=== PATIENT | male | born 1970 | race Caucasian/White ===

== ENCOUNTER 2017-07-15 02:39 | Emergency (ER) | payer OTHER ==
[~2017-07-15] VITALS: Ht 185.4 cm; Wt 90.0 kg
[~2017-07-15 02:39] MED LIST: ALBU8I INH; AMOX875T20 PO; CITA-48 PO; HYDR1CAP30 PO; KETO2SHA5 TOP; LORT5TAB PO; PROT40TA PO; SILD20TA PO; TRAZ50TA4 PO
[2017-07-15 02:41] VITALS: BP 208/97; PULSE 80; RESP 16; TEMP 98; O2SAT 97
[2017-07-15] MEDS ORDERED: HYDR12.57 PO (03:03)
[2017-07-15] MEDS ORDERED: LISI40TA PO (03:03)
[2017-07-15] MEDS ORDERED: SODIUM CHLOR 0.9% 1000 ML INJ 1,000 ML IV SCH (03:14)
[2017-07-15] MEDS ORDERED: KETOROLAC TROMETHAMINE 30 MG/ML (IVP) VIAL IVP ONE (03:15)
[2017-07-15] MEDS ORDERED: ONDANSETRON HCL 4 MG/2 ML VIAL IVP ONE (03:15)
[2017-07-15] MEDS ORDERED: SODIUM CHLORIDE 0.9% FLUSH 10 ML FLUSH IV FLUSH PRN (03:15)
[2017-07-15] MEDS ORDERED: MORPHINE SULFATE 4 MG/ML INJ IV PUSH ONE (03:15)
[2017-07-15 03:56] LABS: AUTOMATED NEUTROPHIL # 9.9 TH/MM3 (1.8-7.7); BASOPHIL # 0.1 TH/MM3 (0-0.2); BASOPHIL % 0.9 % (0.0-2.0); EOSINOPHIL # 0.3 TH/MM3 (0-0.4); HEMATOCRIT 46.2 % (39.0-51.0); HEMO FLAGS DIFF FINAL; LYMPH % 20.4 % (9.0-44.0); LYMPHOCYTE # 2.9 TH/MM3 (1.0-4.8); MEAN CELL VOLUME 90.7 FL (80.0-100.0); MEAN CORPUSCULAR HEMOGLOBIN 30.9 PG (27.0-34.0); MEAN CORPUSCULAR HGB CONC 34.1 % (32.0-36.0); MONO % 7.9 % (0.0-8.0); NEUT % 68.8 % (16.0-70.0); PLATELET COUNT 251 TH/MM3 (150-450); RED CELL DISTRIBUTION WIDTH 14.7 % (11.6-17.2); WHITE BLOOD COUNT 14.3 TH/MM3 (4.0-11.0)
--- NOTE | 2017-07-15 04:00 | RADRPT ---
EXAM DATE/TIME: 07/15/2017 03:24 [place] COMPARISON: CT ABDOMEN & PELVIS W CONTRAST, August 22, 2013, 17:05. INDICATIONS : Left flank pain with painful urination. ORAL CONTRAST: No oral contrast ingested. RADIATION DOSE: 9.81 CTDIvol (mGy) MEDICAL HISTORY : Hypertension. SURGICAL HISTORY : None. ENCOUNTER: Initial ACUITY: 1 day PAIN SCALE: 8/10 LOCATION: Left flank TECHNIQUE: Volumetric scanning of the abdomen and pelvis was performed. Using automated exposure control and ad justment of the mA and/or kV according to patient size, radiation dose was kept as low as reasonably achievable to obtain optimal diagnostic quality images. DICOM format image data is available electro nically for review and comparison. FINDINGS: LOWER LUNGS: The visualized lower lungs are clear. LIVER: Homogeneous density without lesion. There is no dilation of the biliary tree. No calcified gallston es. SPLEEN: There is no normal spleen. There are multiple small apparent splenule's. The largest measures up to 4 .5 x 2.5 cm. this is unchanged in appearance. PANCREAS: Within normal limits. KIDNEYS: Normal in size and shape. There is no mass, stone, or hydronephrosis. ADRENAL GLANDS: Within normal limits. VASCULAR: There is no aortic aneurysm. Atherosclerotic changes are noted in the aorta with calcification. BOWEL/MESENTERY: The stomach, small bowel, and colon demonstrate no acute abnormality. There is no free intraperitone al air or fluid. ABDOMINAL WALL: Within normal limits. RETROPERITONEUM: There is no lymphadenopathy. BLADDER: No wall thickening or mass. REPRODUCTIVE: Within normal limits. INGUINAL: There is no lymphadenopathy or hernia. MUSCULOSKELETAL: Within normal limits for patient age. CONCLUSION: 1. Kidneys are unremarkable in appearance with no renal calculi or obstruction. 2. Unremarkable bowel gas pattern. 3. No normal spleen. There are multiple small splenules. This is stable in appearance. Gibran Castellanos MD on July 15, 2017 at 3:55 Board Certified Radiologist. This report was verified electronically.
[2017-07-15 04:26] VITALS: BP_SYST 182; BP_SYST 209; BP_DIAS 78; BP_DIAS 93; PULSE 65; RESP 18; O2SAT 97
[2017-07-15 04:28] LABS: ANION GAP 8 MEQ/L (5-15); AST (GOT) 22 U/L (15-37); BICARBONATE 25.3 MEQ/L (21.0-32.0); BLOOD UREA NITROGEN 23 MG/DL (7-18); CHLORIDE 106 MEQ/L (98-107); GLOMERULAR FILTRATION RATE 54 ML/MIN (>89); POTASSIUM 4.2 MEQ/L (3.5-5.1); SODIUM (NA) 139 MEQ/L (136-145)
[2017-07-15 04:30] LABS: ALT (GPT) 39 U/L (12-78)
[2017-07-15 04:31] LABS: ALKALINE PHOSPHATASE 85 U/L (45-117); TOTAL BILIRUBIN ADULT 0.2 MG/DL (0.2-1.0)
[2017-07-15 04:56] LABS: BACTERIA, URINE RARE /hpf; BLOOD, URINE NEG (NEG); COMMENT (UR) CULTURE INDICATED; CULTURE IF INDICATED CULTURE INDICATED; GLUCOSE,URINE NEG (NEG); KETONE, URINE NEG (NEG); MUCUS URINE FEW /lpf (OCC); NITRITE,URINE NEG (NEG); URINE COLOR LIGHT-YELLOW (YELLW/STRAW)
[2017-07-15] MEDS ORDERED: CYCLOBENZAPRINE HCL 10 MG TAB PO ONE (05:15)
--- NOTE | 2017-07-15 05:20 | PD ---
HPI Chief Complaint: Back/ Neck Pain or Injury Time Seen by Provider: 03:04 Travel History International Travel<30 days: No Contact w/Intl Traveler<30days: No Traveled to known affect area: No History of Present Illness HPI Patient is a 47 year old male who comes in complaining of lower back pain. He says that last week, he bent over and felt a "pop" in his back. He says this has happened before, but the pain is worse this time. He says he became concerned tonight because his girlfriend noticed a bruise to his back near where he is having the pain. He took an Ibuprofen yesterday without relief of his pain. He says the pain wraps around into his abdomen and goes into his groin. He denies any issues urinating. He denies fever or chills. He denies nausea or vomiting. PFSH Past Medical History Arthritis: Yes (OSTEO) Anxiety: Yes Depression: Yes Diminished Hearing: No Gastrointestinal Disorders: Yes (GASTRITIS) Headaches: Yes Hypertension: Yes Psychiatric: Yes (PTSD) ?: Not Past Surgical History Thoracic Surgery: Yes (SLEEN) Other Surgery: Yes (CYST FROM LEFT BUTTOCKS ) Social History Alcohol Use: Yes (SOCIAL) Tobacco Use: Yes (CIGARS ) Substance Use: No Allergies-Medications (Allergen,Severity, Reaction): Coded Allergies: No Known Allergies (Unverified , 08/22/13) Reported Meds & Prescriptions Reported Meds & Active Scripts Active Reported Hydrochlorothiazide 12.5 Mg Cap 12.5 Mg PO DAILY Lisinopril 40 Mg Tab 40 Mg PO DAILY Review of Systems Except as stated in HPI: all other systems reviewed are Neg General / Constitutional: No: Fever, Chills HENT: No: Headaches, Lightheadedness Cardiovascular: No: Chest Pain or Discomfort Respiratory: No: Shortness of Breath Gastrointestinal: Positive: Abdominal Pain, No: Nausea, Vomiting Genitourinary: Positive: Flank Pain, No: Dysuria Musculoskeletal: Positive: Pain Skin: Positive Lesions, No Rash, No Change in Pigmentation Neurologic: No: Weakness, Dizziness, Sensory Disturbance Physical Exam Narrative GENERAL: Awake and alert, in no acute distress. SKIN: Focused skin assessment warm/dry. 2cm flat area of discoloration on the right side of the back. No warmth, no evidence of infection. HEAD: Atraumatic. Normocephalic. EYES: Pupils equal and round. No scleral icterus. ENT: Mucous membranes pink and moist. NECK: Trachea midline. No JVD. CARDIOVASCULAR: Regular rate and rhythm. No murmur appreciated. RESPIRATORY: No accessory muscle use. Clear to auscultation. Breath sounds equal bilaterally. GASTROINTESTINAL: Abdomen soft, nondistended. Mild LLQ tenderness, no rebound or guarding. MUSCULOSKELETAL: No obvious deformities. No clubbing. No cyanosis. No edema. No spinal tenderness. Tender to palpation of the left sacroiliac area. Pain with left straight leg raise. NEUROLOGICAL: Awake and alert. No obvious cranial nerve deficits. Motor grossly within normal limits. Normal speech. No saddle anesthesia. PSYCHIATRIC: Appropriate mood and affect; insight and judgment normal. Data Data Last Documented VS Vital Signs Date Time Temp Pulse Resp B/P (MAP) Pulse Ox O2 Delivery O2 Flow Rate FiO2 07/15/17 04:26 65 18 182/78 (112) 97 Room Air 07/15/17 02:41 98.0 Orders Orders Complete Blood Count With Diff (07/15/17 03:14) Comprehensive Metabolic Panel (07/15/17 03:14) Urinalysis - C+S If Indicated (07/15/17 03:14) Ct Abd/Pel W/O Iv Contrast (07/15/17 03:14) Iv Access Insert/Monitor (07/15/17 03:14) Ecg Monitoring (07/15/17 03:14) Oximetry (07/15/17 03:14) Morphine Inj (Morphine Inj) (07/15/17 03:15) Ondansetron Inj (Zofran Inj) (07/15/17 03:15) Sodium Chlor 0.9% 1000 Ml Inj (Ns 1000 M (07/15/17 03:14) Sodium Chloride 0.9% Flush (Ns Flush) (07/15/17 03:15) Ketorolac Inj (Toradol Inj) (07/15/17 03:15) Urine Culture (07/15/17 04:22) Cyclobenzaprine (Flexeril) (07/15/17 05:15) Labs Laboratory Tests Test 07/15/17 03:40 07/15/17 04:22 White Blood Count 14.3 TH/MM3 Red Blood Count 5.10 MIL/MM3 Hemoglobin 15.7 GM/DL Hematocrit 46.2 % Mean Corpuscular Volume 90.7 FL Mean Corpuscular Hemoglobin 30.9 PG Mean Corpuscular Hemoglobin Concent 34.1 % Red Cell Distribution Width 14.7 % Platelet Count 251 TH/MM3 Mean Platelet Volume 9.2 FL Neutrophils (%) (Auto) 68.8 % Lymphocytes (%) (Auto) 20.4 % Monocytes (%) (Auto) 7.9 % Eosinophils (%) (Auto) 2.0 % Basophils (%) (Auto) 0.9 % Neutrophils # (Auto) 9.9 TH/MM3 Lymphocytes # (Auto) 2.9 TH/MM3 Monocytes # (Auto) 1.1 TH/MM3 Eosinophils # (Auto) 0.3 TH/MM3 Basophils # (Auto) 0.1 TH/MM3 CBC Comment DIFF FINAL Differential Comment Blood Urea Nitrogen 23 MG/DL Creatinine 1.40 MG/DL Random Glucose 105 MG/DL Total Protein 7.5 GM/DL Albumin 3.7 GM/DL Calcium Level 9.3 MG/DL Alkaline Phosphatase 85 U/L Aspartate Amino Transf (AST/SGOT) 22 U/L Alanine Aminotransferase (ALT/SGPT) 39 U/L Total Bilirubin 0.2 MG/DL Sodium Level 139 MEQ/L Potassium Level 4.2 MEQ/L Chloride Level 106 MEQ/L Carbon Dioxide Level 25.3 MEQ/L Anion Gap 8 MEQ/L Estimat Glomerular Filtration Rate 54 ML/MIN Urine Color LIGHT-YELLOW Urine Turbidity CLEAR Urine pH 7.0 Urine Specific [place] 1.017 Urine Protein TRACE mg/dL Urine Glucose (UA) NEG mg/dL Urine Ketones NEG mg/dL Urine Occult Blood NEG Urine Nitrite NEG Urine Bilirubin NEG Urine Urobilinogen LESS THAN 2.0 MG/DL Urine Leukocyte Esterase TRACE Urine RBC 1 /hpf Urine WBC 12 /hpf Urine Bacteria RARE /hpf Urine Mucus FEW /lpf Microscopic Urinalysis Comment CULTURE INDICATED MDM Medical Decision Making Medical Screen Exam Complete: Yes Emergency Medical Condition: Yes Differential Diagnosis muscle strain vs UTI vs renal stone Narrative Course Patient is a 47-year-old male comes in complaining of left-sided abdominal pain. Exam shows tenderness to the left sacroiliac area and left lower quadrant of the abdomen. IV established, labs sent. Labs show a white blood cell count of 14. Urinalysis is positive for bacteria. CT abdomen and pelvis performed shows no evidence of stone, no acute abnormalities. Patient given IV fluids, Toradol, morphine, Zofran. He says he feels better, but still has some pain. Given a muscle relaxer. He' ll be discharged with a prescription for Cipro as well as Flexeril. Advised follow-up with his doctors. Advised to return to the ED as needed for any worsening symptoms. Diagnosis Primary Impression: Back pain Qualified Codes: M54.42 - Lumbago with sciatica, left side Additional Impression: UTI (urinary tract infection) Qualified Codes: N30.00 - Acute cystitis without hematuria Patient Instructions: Acute Low Back Pain (ED), General Instructions, Urinary Tract Infection in Men (ED) Additional Instructions: Follow-up with your doctors. Take all of your antibiotic. Take the muscle relaxer and ibuprofen as needed for pain. Return to the ED as needed for any worsening symptoms. Scripts Ciprofloxacin (Cipro) 500 Mg Tab 500 MG PO BID for Infection for 7 Days, #14 TAB 0 Refills Prov: Angelica Mitchell MD 07/15/17 Cyclobenzaprine (Flexeril) 10 Mg Tab 10 MG PO TID for Muscle Spasm, #20 TAB 0 Refills Prov: Angelica Mitchell MD 07/15/17 Disposition: 01 DISCHARGE HOME Condition: Stable Angelica Mitchell MD Jul 15, 2017 05:20
[2017-07-15] MEDS ORDERED: CYCL10TA PO (05:36)
[2017-07-15] MEDS ORDERED: CIPR-9 PO (05:36)
[2017-07-15 05:40] VITALS: BP 190/89
== END 2017-07-15 05:59 | disposition home or self-care (01) ==
LOC: NEPC 02:39
DX: M54.42 Lumbago with sciatica, left side (principal); N30.00 Acute cystitis without hematuria; M19.90 Unspecified osteoarthritis, unspecified site; F32.9 Major depressive disorder, single episode, unspecified; I10 Essential (primary) hypertension; Z72.0 Tobacco use
CPT/HCPCS: 74176; 80053; 81001; 85025; 87086; 96361; 96374; 96375; 99285; J1885; J2270; J2405; J7030